=== PATIENT | female | born 1950 | race Caucasian/White ===

== ENCOUNTER 2017-08-19 15:22 | Inpatient (IN) | payer MEDICARE, BC ==
[~2017-08-19] VITALS: Ht 162.6 cm; Wt 76.7 kg
--- NOTE | 2017-08-19 15:00 | NUR ---
Admitted a 66 year old female patient from [facility] with admitting diagnosis of Right CVA. patient is awake, on a gurney, accompanied by 2 EMT staff with vital signs of BP: 114/70, HR: 80, RR: 20, O2 sat of 98 % on room air and temp: 97.7 F taken orally. patient was oriented to place and how to use call light. bed alarm on for safety due to report from Sharif SANTOS at [facility] that patient had history of falls. Med recon done. Will continue to closely monitor. the patient. called Dr. Genao and notified that patient is being admitted and Dr. Gilda Shepard.
[2017-08-19] MEDS ORDERED: LEVE1000 PO (15:45)
[2017-08-19] MEDS ORDERED: FLUT1DIS28 IH (15:57)
[2017-08-19] MEDS ORDERED: ASPI-605 PO (15:57)
[2017-08-19] MEDS ORDERED: FURO-151 PO (15:57)
[2017-08-19] MEDS ORDERED: CARV6.252 PO (15:57)
[2017-08-19] MEDS ORDERED: ATOR20TA PO (15:57)
[2017-08-19] MEDS ORDERED: ALLO100T56 PO (15:57)
[2017-08-19] MEDS ORDERED: ACET-2154 PO (15:57)
[2017-08-19] MEDS ORDERED: FOLI1TAB16 PO (15:57)
[2017-08-19] MEDS ORDERED: CHOL10002 PO (15:57)
[2017-08-19] MEDS ORDERED: LANS30CA56 PO (15:57)
[2017-08-19] MEDS ORDERED: ONDA4TAB8 PO (16:05)
[2017-08-19] MEDS ORDERED: SPIR25TA PO (16:05)
[2017-08-19] MEDS ORDERED: VALP250S17 PO (16:05)
[2017-08-19] MEDS ORDERED: TAMS-3 PO (16:05)
[2017-08-19] MEDS ORDERED: LISI-603 PO (16:05)
[2017-08-19] MEDS ORDERED: TIOT18CA3 IH (16:05)
[2017-08-19] MEDS ORDERED: THIA100T13 PO (16:05)
[2017-08-19 16:10] VITALS: BP 114/70
--- NOTE | 2017-08-19 18:15 | NUR ---
Patient asleep, lying on bed on a side lying position with head of bed above 45 degree angle. Aroused easily. All needs were attended and anticipated. kept patient clean dry and comfortable. call light placed within reach. reoriented to time and place. Will continue to closely monitor. Bed alarm on for safety.
--- NOTE | 2017-08-19 18:56 | NUR ---
patient remained asleep on her side with no SOB, distress or discomforts. Bed alarm on for safety. Easily aroused. Call light placed within reach. Will endorse to incoming shift
[2017-08-19] MEDS ORDERED: CARVEDILOL 6.25 MG TABLET PO SCH (19:00)
[2017-08-19 19:30] VITALS: BP 132/75
--- NOTE | 2017-08-19 19:30 | NUR ---
Received patient from day shift nurse. Shift report at bedside. Patient stable at start of shift, sleeping comfortably in bed with no signs of pain, sob, or acute distress. family at bedside at start of shift. 1:1 sitter at bedside. pertinent assessment completed. vital signs stable at start of shift. bed in low position x2 side rails up. bed alarm on and checked at start of shift. call light placed within reach of pt. will continue to monitor pt through shift.
[2017-08-19] MEDS: LEVETIRACETAM 500 MG TABLET PO SCH (20:26)
[2017-08-19] MEDS: ATORVASTATIN 20 MG TABLET PO SCH (20:26)
[2017-08-19] MEDS: ALLOPURINOL 100 MG TABLET PO SCH (20:26)
[2017-08-19] MEDS: CARVEDILOL 12.5 MG TABLET PO SCH (20:33)
[2017-08-19] MEDS: VALPROIC ACID 250 MG/5 ML LIQUID UDC PO SCH (20:33)
[2017-08-19] MEDS: LISINOPRIL 20 MG TABLET PO SCH (20:33)
--- NOTE | 2017-08-19 20:33 | NUR ---
1900 meds given late due to late admission and med reconciliation. patient stable will continue to monitor pt through shift.
--- NOTE | 2017-08-20 05:57 | NUR ---
patient slept intermittently through shift. stable with no signs of pain, sob, or acute distress. vital signs stable through out the night. all needs attended to. 1:1 sitter at bedside. assisted pt to bathroom during the shift. safety measures implemented. all meds administered as ordered per md. bed in low position x2 side rails up. bed alarm placed on through shift. call light within reach of pt. will endorse to day shift nurse.
[2017-08-20 07:48] LABS: BASOPHILS % (AUTO) 0.8 % (0.0-2.0); EOSINOPHILS # (AUTO) 0.3 K/uL (0.0-0.7); EOSINOPHILS % (AUTO) 7.2 % (0.0-7.0); HEMATOCRIT 34.6 % (31.2-41.9); HEMOGLOBIN 11.5 g/dL (10.9-14.3); LYMPHOCYTES # (AUTO) 1.4 K/uL (20.0-40.0); LYMPHOCYTES % (AUTO) 28.4 % (20.5-51.5); MEAN CORPUSCULAR HEMOGLOBIN 28.5 uug (24.7-32.8); MEAN CORPUSCULAR HGB CONC 33 g/dL (32.3-35.6); MEAN CORPUSCULAR VOLUME 85.9 fL (75.5-95.3); MONOCYTES # (AUTO) 0.5 K/uL (2.0-10.0); MONOCYTES % (AUTO) 10.7 % (0.0-11.0); NEUTROPHILS # (AUTO) 2.6 K/uL (1.8-8.9); NEUTROPHILS % (AUTO) 52.9 % (38.5-71.5); PLATELET COUNT (AUTO) 162 K/uL (179-408); RED BLOOD CELL COUNT(AUTO) 4.03 MIL/uL (3.63-4.92); WHITE BLOOD COUNT (AUTO) 4.8 K/uL (3.8-11.8)
[2017-08-20 07:59] LABS: POTASSIUM 3.5 mmol/L (3.5-5.1)
[2017-08-20] MEDS ORDERED: ONDANSETRON ODT 4 MG TAB.RAPDIS SL PRN (08:15)
[2017-08-20] MEDS ORDERED: FUROSEMIDE 40 MG TABLET PO PRN (08:15)
[2017-08-20] MEDS ORDERED: MISCELLANEOUS MED XX PRN (08:15)
[2017-08-20] MEDS ORDERED: ACETAMINOPHEN 325 MG TABLET PO PRN (08:15)
[2017-08-20] MEDS: THIAMINE HCL 100 MG TABLET PO SCH (08:49)
[2017-08-20] MEDS: CHOLECALCIFEROL 1,000 UNIT TABLET PO SCH (08:49)
[2017-08-20] MEDS: CARVEDILOL 12.5 MG TABLET PO SCH ×2 (08:49→18:43)
[2017-08-20] MEDS: FOLIC ACID 1 MG TABLET PO SCH (08:49)
[2017-08-20] MEDS: TAMSULOSIN HCL 0.4 MG CAP.SR.24H PO SCH (08:50)
[2017-08-20] MEDS: LEVETIRACETAM 500 MG TABLET PO SCH ×2 (08:51→20:08)
[2017-08-20] MEDS: LISINOPRIL 20 MG TABLET PO SCH ×2 (08:52→18:43)
[2017-08-20] MEDS: VALPROIC ACID 250 MG/5 ML LIQUID UDC PO SCH ×2 (08:52→18:44)
[2017-08-20] MEDS: ASPIRIN EC 81 MG TABLET.DR PO SCH (08:53)
[2017-08-20] MEDS ORDERED: Medication Not On Formulary EA (Lansoprazole 30 MG) PO SCH (09:00)
[2017-08-20] MEDS ORDERED: FLUTICASONE/SALMETEROL 250/50 INHALER IH SCH (09:00)
[2017-08-20] MEDS: SPIRONOLACTONE 25 MG TABLET PO SCH (09:00)
[2017-08-20] MEDS ORDERED: IPRATROPIUM BROMIDE 0.5 MG/2.5 ML NEBU NEB PRN (09:30)
[2017-08-20] MEDS ORDERED: MELATONIN 3 MG TABLET PO PRN (13:15)
[2017-08-20 19:30] VITALS: BP 117/63
[2017-08-20] MEDS: ATORVASTATIN 20 MG TABLET PO SCH (20:08)
[2017-08-20] MEDS: ALLOPURINOL 100 MG TABLET PO SCH (20:08)
--- NOTE | 2017-08-20 20:29 | NUR ---
RECEIVED PATIENT FROM DAY SHIFT NURSE. SHIFT REPORT AT BEDSIDE. PATIENT STABLE, LYING IN BED COMFORTABLY WITH NO SIGNS OF PAIN, SOB, OR ACUTE DISTRESS. PERTINENT ASSESSMENT COMPLETED. ON 2L O2 VIA NC. HOB ELEVATED. BED IN LOW POSITION X2 SIDE RAILS UP. ENCOURAGED PATIENT TO USE CALL LIGHT WHEN NEEDING ASSISTANCE. CALL LIGHT PLACED WITHIN REACH OF PATIENT. WILL CONTINUE TO MONITOR PATIENT THROUGH SHIFT. Addendum: 08/20/17 at 2031 by Remi Bright RN DOCUMENTED FOR THE WRONG PATIENT. PATIENT IS NOT ON O2 2L VIA NC. PATIENT HAS A 1:1 SITTER AT BEDSIDE. BED ALARM ON FOR SAFETY. WILL CONTINUE TO MONITOR PATIENT.
--- NOTE | 2017-08-21 05:36 | NUR ---
PATIENT STABLE THROUGH THE SHIFT. NO SIGNS OF PAIN, SOB, OR ACUTE DISTRESS. PT SLEPT INTERMITTENTLY. ALL MEDS ADMINISTERED ORDERED PER MD. ALL NEEDS ATTENDED TO. SAFETY MEASURES IMPLEMENTED. CALL LIGHT WITHIN REACH OF PT. 1:1 SITTER AT BEDSIDE. BED IN LOW POSITION X2 SIDE RAILS UP WITH BED ALARM ON. NO CHANGES IN CONDITION. WILL ENDORSE TO DAY SHIFT NURSE.
[2017-08-21] MEDS: PANTOPRAZOLE SODIUM 40 MG TABLET.DR PO SCH (06:04)
[2017-08-21] MEDS: CARVEDILOL 12.5 MG TABLET PO SCH ×2 (08:00→17:17)
[2017-08-21] MEDS: SPIRONOLACTONE 25 MG TABLET PO SCH ×2 (09:04→17:00)
[2017-08-21] MEDS: THIAMINE HCL 100 MG TABLET PO SCH (09:04)
[2017-08-21] MEDS: TAMSULOSIN HCL 0.4 MG CAP.SR.24H PO SCH (09:04)
[2017-08-21] MEDS: ASPIRIN EC 81 MG TABLET.DR PO SCH (09:04)
[2017-08-21] MEDS: LISINOPRIL 20 MG TABLET PO SCH ×2 (09:04→17:00)
[2017-08-21] MEDS: LEVETIRACETAM 500 MG TABLET PO SCH ×2 (09:04→21:29)
[2017-08-21] MEDS: FOLIC ACID 1 MG TABLET PO SCH (09:04)
[2017-08-21] MEDS: CHOLECALCIFEROL 1,000 UNIT TABLET PO SCH (09:04)
[2017-08-21] MEDS: VALPROIC ACID 250 MG/5 ML LIQUID UDC PO SCH ×2 (09:04→17:07)
[2017-08-21] MEDS: FLUTICASONE/VILANTEROL 1 EACH BLST.W.DEV INH SCH (09:06)
[2017-08-21] MEDS: ATORVASTATIN 20 MG TABLET PO SCH (21:29)
[2017-08-21] MEDS: ALLOPURINOL 100 MG TABLET PO SCH (21:29)
--- NOTE | 2017-08-21 22:38 | NUR ---
Pt in bed and resting comfortably. AAO x4. On isolation for MRSA nares. Patient to be transferred from 109 to 101A because pt is sharing bathroom with 108. No acute distress noted. No c/o pain or discomfort. Vital signs stable. Safety measures maintained. Call light and personal belongings within reach. Will continue to monitor.
--- NOTE | 2017-08-22 05:44 | NUR ---
Pt slept comfortably t/o the night. Assisted to the bathroom as needed. Able to make needs known. All needs attended to promptly. Will endorse to day shift RN. Continue to monitor.
[2017-08-22] MEDS: PANTOPRAZOLE SODIUM 40 MG TABLET.DR PO SCH (06:21)
--- NOTE | 2017-08-22 07:30 | NUR ---
Received patient awake, alert, verbally responsive, up on bed, not in any form of acute distress. She denies any pain or discomfort at this time. Call light placed within reach. Reminded to use call light for assistance with verbalized understanding. Attended to her needs.
[2017-08-22 07:35] VITALS: BP 131/61
[2017-08-22] MEDS: LEVETIRACETAM 500 MG TABLET PO SCH ×2 (08:36→20:01)
[2017-08-22] MEDS: FOLIC ACID 1 MG TABLET PO SCH (08:37)
[2017-08-22] MEDS: ASPIRIN EC 81 MG TABLET.DR PO SCH (08:37)
[2017-08-22] MEDS: CHOLECALCIFEROL 1,000 UNIT TABLET PO SCH (08:37)
[2017-08-22] MEDS: TAMSULOSIN HCL 0.4 MG CAP.SR.24H PO SCH (08:37)
[2017-08-22] MEDS: THIAMINE HCL 100 MG TABLET PO SCH (08:37)
[2017-08-22] MEDS: SPIRONOLACTONE 25 MG TABLET PO SCH ×2 (08:37→16:30)
[2017-08-22] MEDS: FLUTICASONE/VILANTEROL 1 EACH BLST.W.DEV INH SCH (08:38)
[2017-08-22] MEDS: VALPROIC ACID 250 MG/5 ML LIQUID UDC PO SCH ×2 (08:38→16:30)
[2017-08-22] MEDS: LISINOPRIL 20 MG TABLET PO SCH ×2 (08:40→17:17)
[2017-08-22] MEDS: CARVEDILOL 12.5 MG TABLET PO SCH ×2 (08:40→17:17)
--- NOTE | 2017-08-22 14:00 | NUR ---
Patient up on the wheelchair going to the gym with occupational therapist.
--- NOTE | 2017-08-22 14:03 | NUR ---
Notified Dr. Garcia regarding positive MRSA of nares and MD put an order for mupirocin ointment.
--- NOTE | 2017-08-22 17:08 | NUR ---
Patient sitting up on the side of the bed having dinner. She denies any pain or discomfort at this time.
--- NOTE | 2017-08-22 19:10 | NUR ---
Pt resting comfortably in bed. AAO x4. No acute distress noted. No c/o pain or discomfort. Contact isolation protocol implemented. Safety measures maintained. Call light and personal belongings within reach. Will continue to monitor.
[2017-08-22] MEDS: ATORVASTATIN 20 MG TABLET PO SCH (20:01)
[2017-08-22] MEDS: MUPIROCIN 2% OINT 22 GM TUBE NS SCH (20:01)
[2017-08-22] MEDS: ALLOPURINOL 100 MG TABLET PO SCH (20:01)
[2017-08-22 21:50] VITALS: BP 98/64
--- NOTE | 2017-08-23 05:40 | NUR ---
Pt slept comfortably t/o the night. Meds given per MD's order. Pt stable. Still on contact isolation. All needs attended to promptly and assisted to the bathroom as needed. Will endorse to day shift RN. Continue to monitor.
[2017-08-23] MEDS: PANTOPRAZOLE SODIUM 40 MG TABLET.DR PO SCH (06:13)
[2017-08-23 07:00] VITALS: BP 123/74
[2017-08-23] MEDS: MUPIROCIN 2% OINT 22 GM TUBE NS SCH ×2 (08:31→20:52)
[2017-08-23] MEDS: CARVEDILOL 12.5 MG TABLET PO SCH ×2 (08:32→18:00)
[2017-08-23] MEDS: FOLIC ACID 1 MG TABLET PO SCH (08:32)
[2017-08-23] MEDS: THIAMINE HCL 100 MG TABLET PO SCH (08:32)
[2017-08-23] MEDS: CHOLECALCIFEROL 1,000 UNIT TABLET PO SCH (08:33)
[2017-08-23] MEDS: ASPIRIN EC 81 MG TABLET.DR PO SCH (08:33)
[2017-08-23] MEDS: SPIRONOLACTONE 25 MG TABLET PO SCH ×2 (08:33→17:25)
[2017-08-23] MEDS: LISINOPRIL 20 MG TABLET PO SCH ×2 (08:33→17:00)
[2017-08-23] MEDS: LEVETIRACETAM 500 MG TABLET PO SCH ×2 (08:33→20:50)
[2017-08-23] MEDS: TAMSULOSIN HCL 0.4 MG CAP.SR.24H PO SCH (08:34)
[2017-08-23] MEDS: FLUTICASONE/VILANTEROL 1 EACH BLST.W.DEV INH SCH (08:35)
[2017-08-23] MEDS: VALPROIC ACID 250 MG/5 ML LIQUID UDC PO SCH ×2 (08:40→17:26)
--- NOTE | 2017-08-23 12:49 | NUR ---
SBAR report received near bedside, board updated. Pt awake, alert, and oriented. Pt assessed, no c/o pain, acute distress or SOB. Pt compliant with routine morning medication and plan of care discussed with Pt. Stroke assessment and Pt education provided, with no changes to scale score. Call light and personal items within reach. Bed alarm on and Pt reminded to call for any assistance. All safety and comfort measures met at this time. Will continue to monitor.
--- NOTE | 2017-08-23 14:41 | NUR ---
INTERDISCIPLINARY TEAM CONFERENCE
--- NOTE | 2017-08-23 19:04 | NUR ---
Pt seen by MD, code status discussed, and full code status order placed. Pt's son visited for afternoon meeting. BP medications held due to decreased readings 106/48, 63, then 110/43, 62. Pt denies dizziness at this time. Call light within reach and Pt reminded to utilize for all toileting needs. Bed alarm on. Will endorse to oncoming shift production supervisor.
--- NOTE | 2017-08-23 19:30 | NUR ---
Received pt in bed, appearing to be asleep but easily arousable to verbal stimuli. No acute distress noted. Denies any pain or discomfort at this time. Verbally responsive and able to make needs known. Call light and all personal belongings within reach. Will continue to monitor.
[2017-08-23 20:15] VITALS: BP 97/61
[2017-08-23] MEDS: ATORVASTATIN 20 MG TABLET PO SCH (20:50)
[2017-08-23] MEDS: ALLOPURINOL 100 MG TABLET PO SCH (20:51)
[2017-08-24] MEDS: PANTOPRAZOLE SODIUM 40 MG TABLET.DR PO SCH (06:25)
--- NOTE | 2017-08-24 06:47 | NUR ---
Pt slept comfortably throughout the shift. No complaints of pain or discomfort throughout shift. No acute distress noted. Kept clean and dry. All needs anticipated and met accordingly. All safety measures and fall precautions maintained. Call light within reach. Will endorse to AM shift.
[2017-08-24 08:00] VITALS: BP 121/67
[2017-08-24] MEDS: CARVEDILOL 12.5 MG TABLET PO SCH ×2 (08:00→17:42)
[2017-08-24] MEDS: CHOLECALCIFEROL 1,000 UNIT TABLET PO SCH (08:19)
[2017-08-24] MEDS: TAMSULOSIN HCL 0.4 MG CAP.SR.24H PO SCH (08:19)
[2017-08-24] MEDS: FOLIC ACID 1 MG TABLET PO SCH (08:20)
[2017-08-24] MEDS: ASPIRIN EC 81 MG TABLET.DR PO SCH (08:20)
[2017-08-24] MEDS: THIAMINE HCL 100 MG TABLET PO SCH (08:20)
[2017-08-24] MEDS: LEVETIRACETAM 500 MG TABLET PO SCH ×2 (08:21→20:20)
[2017-08-24] MEDS: VALPROIC ACID 250 MG/5 ML LIQUID UDC PO SCH ×2 (08:22→17:39)
[2017-08-24] MEDS: FLUTICASONE/VILANTEROL 1 EACH BLST.W.DEV INH SCH (08:24)
[2017-08-24] MEDS: MUPIROCIN 2% OINT 22 GM TUBE NS SCH ×2 (08:25→20:21)
[2017-08-24] MEDS: SPIRONOLACTONE 25 MG TABLET PO SCH ×2 (08:34→17:42)
[2017-08-24] MEDS: LISINOPRIL 20 MG TABLET PO SCH ×2 (09:00→17:42)
--- NOTE | 2017-08-24 12:22 | NUR ---
SBAR report received near bedside, board updated. Pt awake, alert, and oriented x4. Pt assessed no acute distress, no SOB, and no pain. Pt compliant with all routine morning medications, except Coreg and Lisinipril stating "taking too many BP medications". Pt repositioned for safety and comfort, sitting up for lunch. Call light and personal items all placed within reach. Will continue to monitor.
--- NOTE | 2017-08-24 19:01 | NUR ---
Pt became upset for talking to son on the phone regarding laundry. Pt escorted around the unit in wheelchair to calm down. BP 150/83, 86 pulse, BP medications administered per orders. All safety and comfort measures met. Call light within reach. Will continue to monitor and endorse to assistant shift supervisor.
--- NOTE | 2017-08-24 19:22 | NUR ---
Received report from day shift RN. Received pt in bed, sitting up and watching television. AAO x 4. Verbally responsive and able to make needs known. Denies pain or discomfort at this time. No acute distress noted. Call light and all personal belongings within reach. Will continue to monitor.
[2017-08-24 20:02] VITALS: BP 91/62
[2017-08-24] MEDS: ATORVASTATIN 20 MG TABLET PO SCH (20:20)
[2017-08-24] MEDS: ALLOPURINOL 100 MG TABLET PO SCH (20:20)
--- NOTE | 2017-08-25 05:54 | NUR ---
Pt slept comfortably throughout the shift. No complaints of pain or discomfort. No acute distress. All medications given as ordered and well tolerated. Kept clean, dry and comfortable. All needs anticipated and met accordingly. Call light and all personal belongings within reach. All safety measures and fall precautions maintained. Will continue to monitor. Will endorse to AM shift.
[2017-08-25] MEDS: PANTOPRAZOLE SODIUM 40 MG TABLET.DR PO SCH (06:30)
[2017-08-25 08:28] VITALS: BP 136/57
[2017-08-25] MEDS: MUPIROCIN 2% OINT 22 GM TUBE NS SCH ×2 (08:47→20:26)
[2017-08-25] MEDS: FOLIC ACID 1 MG TABLET PO SCH (08:48)
[2017-08-25] MEDS: CHOLECALCIFEROL 1,000 UNIT TABLET PO SCH (08:48)
[2017-08-25] MEDS: TAMSULOSIN HCL 0.4 MG CAP.SR.24H PO SCH (08:48)
[2017-08-25] MEDS: ASPIRIN EC 81 MG TABLET.DR PO SCH (08:48)
[2017-08-25] MEDS: FLUTICASONE/VILANTEROL 1 EACH BLST.W.DEV INH SCH (08:48)
[2017-08-25] MEDS: THIAMINE HCL 100 MG TABLET PO SCH (08:48)
[2017-08-25] MEDS: SPIRONOLACTONE 25 MG TABLET PO SCH ×2 (08:49→17:23)
[2017-08-25] MEDS: LISINOPRIL 20 MG TABLET PO SCH ×2 (08:49→17:00)
[2017-08-25] MEDS: LEVETIRACETAM 500 MG TABLET PO SCH ×2 (08:49→20:27)
[2017-08-25] MEDS: VALPROIC ACID 250 MG/5 ML LIQUID UDC PO SCH ×2 (08:50→17:23)
[2017-08-25] MEDS: CARVEDILOL 12.5 MG TABLET PO SCH ×2 (08:53→18:00)
--- NOTE | 2017-08-25 19:30 | NUR ---
RECEIVED PATIENT FROM DAY SHIFT NURSE. SHIFT REPORT AT BEDSIDE. PATIENT A/OX4 WITH NO SIGNS OF PAIN, SOB, OR ACUTE DISTRESS. PT SITTING UPRIGHT IN BED AT START OF SHIFT ON THE PHONE. BED IN LOW POSITION X2 SIDE RAILS UP. PERTINENT ASSESSMENT DONE. ON ISOLATION FOR MRSA NARES. CALL LIGHT WITHIN REACH OF PT. WILL CONTINUE TO MONITOR PT THROUGH SHIFT.
[2017-08-25] MEDS: ALLOPURINOL 100 MG TABLET PO SCH (20:27)
[2017-08-25] MEDS: ATORVASTATIN 20 MG TABLET PO SCH (20:27)
[2017-08-25 21:25] LABS: *BILIRUBIN,URIN NEGATIVE (NEGATIVE); *BLOOD, URINE NEGATIVE (NEGATIVE); *CLARITY,URINE CLEAR (CLEAR); *COLOR,URINE YELLOW (YELLOW); *KETONES,URINE NEGATIVE (NEGATIVE); *PROTEIN,URINE NEGATIVE (NEGATIVE); *UROBILINOGEN,URINE 0.2 E.U./dl (NORMAL); LEUKOCYTE ESTERASE ,URINE NEGATIVE (NEGATIVE); NITRITE, URINE NEGATIVE (NEGATIVE); UGLUCOSE NEGATIVE (NEGATIVE)
[2017-08-25 21:30] LABS: BACTERIA,URINE FEW /HPF (NONE SEEN); CALCIUM OXALATE CRYSTALS,UR PRESENT /HPF (NONE SEEN); RBC,URINE 0-3 /HPF (0-3); SQUAMOUS EPITHELIAL CELL,UR FEW /HPF (NONE SEEN); WBC,URINE 0-3 /HPF (0-3)
--- NOTE | 2017-08-26 05:38 | NUR ---
PATIENT SLEPT INTERMITTENTLY THROUGH THE SHIFT. NO SIGNS OR COMPLAINTS OF PAIN, SOB, OR ACUTE DISTRESS. ALL NEEDS ATTENDED TO. ALL MEDS ADMINISTERED ORDERED PER MD. ENCOURAGED PT TO USE CALL LIGHT WHEN NEEDING ASSISTANCE. PT COMPLAINT AND USED CALL LIGHT WHEN NEEDING TO GET UP AND USE RESTROOM. SAFETY MEASURES IMPLEMENTED. CALL LIGHT WITHIN REACH OF PT. WILL ENDORSE TO DAY SHIFT NURSE.
[2017-08-26] MEDS: PANTOPRAZOLE SODIUM 40 MG TABLET.DR PO SCH (06:26)
--- NOTE | 2017-08-26 07:44 | NUR ---
RECEIVED PATIENT, ASLEEP. NON-LABORED BREATHING. CALL LIGHT WITHIN REACH. WILL CONTINUE TO MONITOR.
[2017-08-26] MEDS: CARVEDILOL 12.5 MG TABLET PO SCH ×2 (08:28→17:57)
[2017-08-26] MEDS: TAMSULOSIN HCL 0.4 MG CAP.SR.24H PO SCH (08:28)
[2017-08-26] MEDS: CHOLECALCIFEROL 1,000 UNIT TABLET PO SCH (08:30)
[2017-08-26] MEDS: SPIRONOLACTONE 25 MG TABLET PO SCH ×2 (08:30→17:57)
[2017-08-26] MEDS: THIAMINE HCL 100 MG TABLET PO SCH (08:30)
[2017-08-26] MEDS: LISINOPRIL 20 MG TABLET PO SCH ×2 (08:30→17:57)
[2017-08-26] MEDS: FOLIC ACID 1 MG TABLET PO SCH (08:30)
[2017-08-26] MEDS: ASPIRIN EC 81 MG TABLET.DR PO SCH (08:30)
[2017-08-26] MEDS: LEVETIRACETAM 500 MG TABLET PO SCH ×2 (08:30→21:26)
[2017-08-26] MEDS: MUPIROCIN 2% OINT 22 GM TUBE NS SCH ×2 (08:30→21:26)
[2017-08-26] MEDS: FLUTICASONE/VILANTEROL 1 EACH BLST.W.DEV INH SCH (08:31)
[2017-08-26] MEDS: VALPROIC ACID 250 MG/5 ML LIQUID UDC PO SCH ×2 (08:31→17:58)
[2017-08-26 08:34] VITALS: BP 142/59
--- NOTE | 2017-08-26 10:56 | NUR ---
PATIENT IN BED AND REFUSES TO WORK WITH PHYSICAL THERAPY, A BIT WITHDRAWN TODAY. HOWEVER PATIENT SAID SHE IS OK TO WORK WITH OCCUPATIONAL THERAPY.
--- NOTE | 2017-08-26 18:00 | NUR ---
Patient agitated and claims she is upset with the food and refuses dinner served,
--- NOTE | 2017-08-26 20:17 | NUR ---
Patient resting in bed. Denies any pain. Not in any form of distress. Call light within reach.
[2017-08-26] MEDS: ALLOPURINOL 100 MG TABLET PO SCH (21:26)
[2017-08-26] MEDS: ATORVASTATIN 20 MG TABLET PO SCH (21:27)
[2017-08-26 21:43] VITALS: BP 123/60
--- NOTE | 2017-08-26 22:30 | NUR ---
Change of assignment. Received pt sleeping comfortably in bed. Easily arousable when called by name. Vital signs stable. No acute distress noted. No c/o pain or discomfort. Safety measures maintained. Call light and personal belongings within reach. Will continue to monitor.
--- NOTE | 2017-08-27 05:18 | NUR ---
Patient slept comfortably t/o the night. Meds given as prescribed. Assisted to the bathroom as needed. All needs attended to promptly. Contact isolation observed. Will endorse to day shift RN. Continue to monitor.
[2017-08-27] MEDS: PANTOPRAZOLE SODIUM 40 MG TABLET.DR PO SCH (06:14)
[2017-08-27 07:30] VITALS: BP 114/54
--- NOTE | 2017-08-27 09:30 | NUR ---
Morning care done. Assisted patient to bathroom. Patient upset and withdrawn.
[2017-08-27] MEDS: FLUTICASONE/VILANTEROL 1 EACH BLST.W.DEV INH SCH (09:34)
[2017-08-27] MEDS: LISINOPRIL 20 MG TABLET PO SCH ×2 (09:37→17:00)
[2017-08-27] MEDS: LEVETIRACETAM 500 MG TABLET PO SCH ×2 (09:37→20:14)
[2017-08-27] MEDS: FOLIC ACID 1 MG TABLET PO SCH (09:37)
[2017-08-27] MEDS: TAMSULOSIN HCL 0.4 MG CAP.SR.24H PO SCH (09:37)
[2017-08-27] MEDS: CHOLECALCIFEROL 1,000 UNIT TABLET PO SCH (09:37)
[2017-08-27] MEDS: THIAMINE HCL 100 MG TABLET PO SCH (09:37)
[2017-08-27] MEDS: CARVEDILOL 12.5 MG TABLET PO SCH ×2 (09:37→17:41)
[2017-08-27] MEDS: SPIRONOLACTONE 25 MG TABLET PO SCH ×2 (09:37→17:10)
[2017-08-27] MEDS: ASPIRIN EC 81 MG TABLET.DR PO SCH (09:37)
[2017-08-27] MEDS: VALPROIC ACID 250 MG/5 ML LIQUID UDC PO SCH ×2 (09:38→17:11)
[2017-08-27] MEDS: MUPIROCIN 2% OINT 22 GM TUBE NS SCH ×2 (09:38→20:14)
--- NOTE | 2017-08-27 18:00 | NUR ---
Attended to needs, assisted patient outside for air. Patient complained of tolerable pain over sinus, offered pain medications but refused
--- NOTE | 2017-08-27 19:30 | NUR ---
PT ALERT AND ORIENTED IN BED. NO DISTRESS NOTED. PT CLEAN AND DRY. REFUSING BED ALARM BEING PLACED. EXPLAINED THE IMPORTANCE OF THE BED ALARM AND PT INSISTED IT NOT BE PLACED. ALL NEEDS MET, WILL CONTINUE TO MONITOR.
[2017-08-27] MEDS: ATORVASTATIN 20 MG TABLET PO SCH (20:14)
[2017-08-27] MEDS: ALLOPURINOL 100 MG TABLET PO SCH (20:14)
[2017-08-27 21:09] VITALS: BP 95/40
--- NOTE | 2017-08-27 21:50 | NUR ---
PT COMPLAINING OF BURNING IN NOSTRILS AFTER BACTROBAN APPLIED. REQUESTING TYLENOL, WHEN TYLENOL WAS BROUGHT TO PT, PT REFUSING ONLY ONE TABLET REQUESTING TWO TABLETS. SPOKE WITH DR ABRAMS AND GAVE ORDERED. WILL CONTINUE TO MONITOR.
[2017-08-27] MEDS: ACETAMINOPHEN 325 MG TABLET PO PRN (21:56)
[2017-08-27] MEDS ORDERED: ACETAMINOPHEN 325 MG TABLET ONE (22:10)
[2017-08-28] MEDS: PANTOPRAZOLE SODIUM 40 MG TABLET.DR PO SCH (06:34)
--- NOTE | 2017-08-28 07:43 | NUR ---
PT ALERT AND ORIENTED IN BED. NO DISTRESS NOTED. SLEPT WELL THROUGHOUT THE NIGHT. ALL NEEDS MET. SAFETY MAINTAINED. CALL LIGHT WITHIN REACH.
[2017-08-28] MEDS: CARVEDILOL 12.5 MG TABLET PO SCH ×2 (08:11→18:00)
[2017-08-28] MEDS: FLUTICASONE/VILANTEROL 1 EACH BLST.W.DEV INH SCH (08:12)
[2017-08-28] MEDS: MUPIROCIN 2% OINT 22 GM TUBE NS SCH ×2 (08:13→21:00)
[2017-08-28] MEDS: SPIRONOLACTONE 25 MG TABLET PO SCH ×2 (08:13→18:32)
[2017-08-28] MEDS: VALPROIC ACID 250 MG/5 ML LIQUID UDC PO SCH ×2 (08:14→18:32)
[2017-08-28] MEDS: FOLIC ACID 1 MG TABLET PO SCH (08:16)
[2017-08-28] MEDS: THIAMINE HCL 100 MG TABLET PO SCH (08:16)
[2017-08-28] MEDS: LISINOPRIL 20 MG TABLET PO SCH ×3 (08:17→18:30)
[2017-08-28] MEDS: CHOLECALCIFEROL 1,000 UNIT TABLET PO SCH (08:17)
[2017-08-28] MEDS: LEVETIRACETAM 500 MG TABLET PO SCH ×2 (08:19→21:17)
[2017-08-28] MEDS: TAMSULOSIN HCL 0.4 MG CAP.SR.24H PO SCH (08:19)
[2017-08-28] MEDS: ASPIRIN EC 81 MG TABLET.DR PO SCH (08:19)
--- NOTE | 2017-08-28 08:31 | NUR ---
PATIENT EXPRESSED SHE IS "IN A SET MOOD, UPSET" SHE STATED THE PRODUCTION PACKAGER MADE HER UPSET "I HAD A TERRIBLE NIGHT, I DID NOT WANT THE CREAM IN MY NOSE AND I GOT IT ANYWAY IT HURTS AND STINGS" PATIENT STATED "I WILL NOT TAKE THAT CREAM AGAIN , I JNOW WHAT IT IS FOR AND I STILL DO NOT WANT IT"
[2017-08-28] MEDS: ACETAMINOPHEN 325 MG TABLET PO PRN ×2 (08:43→18:51)
--- NOTE | 2017-08-28 10:47 | NUR ---
PATIENT REPORTS FEELING COMFORTABLE NOW. NO ACUTE DISTRESS NOTED REPORTS HER PAIN MEDICATION ADMINS THIS MORNING WAS EFFECTIVE. NASAL/SINUS PAIN RESOLVED AT THE TIME. PATIENT IN BED SAFETY PRECAUTIONS IN PLACE. PATIENT SLEEPING EASILY AROUSED.
[2017-08-28 18:22] VITALS: BP 108/38
--- NOTE | 2017-08-28 19:28 | NUR ---
PATIENT IN BED SLEEPING WAKES TO NAME CALLED. PATIENT REPORTS SHE IS ANGRY BECAUSE SHE WAS NOT ABLE TO GO HAVE NEW YEARS DINNER WITH HER FAMILY. PATIENT STATES I AM UPSET AND "I WILL NOT BE EATING DINNER TONIGHT. THEY SERVE GARBAGE HERE, ALWAYS GARBAGE" DISCUSSED OBTAINING HER VS IN ORDER TO ADMINS PM MEDS. THE PATIENT STATED "I DON'T CARE" PT VS OBTAINED BP NOTED TO BE LOW. BP MEDS HELD. PATIENT REPORTED PAIN OF 5/10 TO HER NOSTRILS AND SINUS REQUESTED TYLENOL. MEDICATIONS PREPARED FOR PATIENT AND REVIEWED MEDS WITH HER. THE PATIENT THEN REFUSED THE MEDICATIONS. ALL PM MEDS REFUSED. STATING " I DON'T WANT ANY MEDICATIONS NOW I DON'T HAVE TO TAKE THE MEDICATIONS IF I DON'T WANT TO" PATIENTS RESTATED SHE WAS VERY UPSET. PATIENT REMAINED IN BED EYES CLOSED AND STATED "LET ME SLEEP" INFORMATION RELAYED TO CAMELIA SANTOS AND PM ASSIGNED NURSE.
--- NOTE | 2017-08-28 19:45 | NUR ---
Received patient from AM shift nurse. Shift report done at bedside. Pt. in bed, asleep,vital signs taken, no sob, or acute distress. Safety measures provided. bed in low position x2 side rails up. bed alarm on and checked at start of shift. call light placed within reach of pt. will continue to monitor pt through shift.
[2017-08-28 21:07] VITALS: BP 118/54
[2017-08-28] MEDS: ALLOPURINOL 100 MG TABLET PO SCH (21:15)
[2017-08-28] MEDS: ATORVASTATIN 20 MG TABLET PO SCH (21:15)
--- NOTE | 2017-08-28 21:25 | NUR ---
pt. refused the Mupirocin ointment, explained to the patient the benefits of this medications and the risks of not taking it. Offered 3x but still patient refused.
[2017-08-29] MEDS: ACETAMINOPHEN 325 MG TABLET PO PRN ×3 (02:54→21:36)
[2017-08-29] MEDS: PANTOPRAZOLE SODIUM 40 MG TABLET.DR PO SCH (06:48)
--- NOTE | 2017-08-29 07:30 | NUR ---
Pt able to sleep comfortably throughout the shift. No complaints of pain or discomfort throughout shift. Breathing even and nonlabored, no distress noted. Kept clean and dry. All needs attended to. All safety measures and fall precautions maintained. Call light within reach. Will endorse to AM shift
[2017-08-29 08:45] VITALS: BP 146/82
[2017-08-29] MEDS: LEVETIRACETAM 500 MG TABLET PO SCH ×2 (08:45→21:36)
[2017-08-29] MEDS: FOLIC ACID 1 MG TABLET PO SCH (08:45)
[2017-08-29] MEDS: ASPIRIN EC 81 MG TABLET.DR PO SCH (08:45)
[2017-08-29] MEDS: SPIRONOLACTONE 25 MG TABLET PO SCH ×2 (08:45→17:07)
[2017-08-29] MEDS: TAMSULOSIN HCL 0.4 MG CAP.SR.24H PO SCH (08:45)
[2017-08-29] MEDS: CARVEDILOL 12.5 MG TABLET PO SCH ×2 (08:45→17:09)
[2017-08-29] MEDS: CHOLECALCIFEROL 1,000 UNIT TABLET PO SCH (08:45)
[2017-08-29] MEDS: THIAMINE HCL 100 MG TABLET PO SCH (08:45)
[2017-08-29] MEDS: LISINOPRIL 20 MG TABLET PO SCH ×2 (08:45→17:09)
[2017-08-29] MEDS: VALPROIC ACID 250 MG/5 ML LIQUID UDC PO SCH ×2 (08:46→17:09)
[2017-08-29] MEDS: FLUTICASONE/VILANTEROL 1 EACH BLST.W.DEV INH SCH (08:46)
[2017-08-29] MEDS: MUPIROCIN 2% OINT 22 GM TUBE NS SCH (08:51)
--- NOTE | 2017-08-29 09:03 | NUR ---
I agree Addendum: 08/29/17 at 0903 by GLADIS ARTHUR OT Amended: Links added.
--- NOTE | 2017-08-29 09:40 | NUR ---
PT SEEN ON ROUNDING. PT bp elevated. pt given blood pressure meds to decrease bp. other vitals stable. pt continues to have orbital bruises but improving. pt swallow pills whole. pt instructed about fall prevention. pt continues to state that she does not like the treatment she gets here in the hospital. no sob noted. pt given inhaler. will continue to monitor.
--- NOTE | 2017-08-29 16:08 | NUR ---
Lumber Straightened: Biopsychosocial Assessment Bio: SW met with patient at bedside to assess for needs and provide support. Patient is a 66-year-old female admitted to ARU due to functional decline, gait dysfunction and ataxia. Patient had fallen at her assisted living facility. Per patient's chart, she has had several falls recently. Mental Status: Patient appeared alert and oriented x4 during interview. She presented in an anxious mood with congruent affect. Patient has been in the hospital since August 19, 2017. Patient was pleasant, calm, and cooperative during interview. Patient appears anxious about her discharge plans, and stated she does not want to return to her assisted living facility. Patient appears to be coping well with PT and OT. Social: Patient has been twice. She her first . Her second 10 years ago. She has four children. One of her children due to cancer. She also has several grandchildren whom she is in contact with. Patient appears to receive a lot of support from her family. However, patient reported having some conflict with her son due to disagreements over care plans. Patient appears to be experiencing a status and role change within her family. She does not appear to be coping well with becoming more dependent on her son. Goals: Patient reports that her goal is to "sew again." Interventions: SW engaged in active listening. SW provided emotional support and counseling. VIK spoke with egg caser Ben to express patient's feelings that she does not want to return to her assisted living. SW will continue to provide linkage to case management and provide community referrals if needed. SW will encourage patient to comply with ARU goals.
--- NOTE | 2017-08-29 18:36 | NUR ---
pt has been stable thoughoout the day. pt continues to be anxious and beligerent about plan of care. pt states that she does not want to be here. pt instructed the importance of adhering to therapy. pt refuses to stay. major case detective on the case. pt bp has been stable throughout the day. pt assisted as needed. pt bruises on face improving. will endorse to overnight cashier nurse.
--- NOTE | 2017-08-29 19:01 | NUR ---
pt left the unit at 1720. pt family signed out on pass.
--- NOTE | 2017-08-29 20:30 | NUR ---
pt. came back from out on pass with son in law who wheeled her through wheelchair. assisted pt back to bed. vital signs taken and recorded. breathing even and nonlabored. safety measures provided. call light in reach. will monitor the patient.
[2017-08-29 21:25] VITALS: BP 99/68
[2017-08-29] MEDS: ATORVASTATIN 20 MG TABLET PO SCH (21:36)
[2017-08-29] MEDS: ALLOPURINOL 100 MG TABLET PO SCH (21:36)
[2017-08-30] MEDS: ACETAMINOPHEN 325 MG TABLET PO PRN ×3 (02:03→20:43)
[2017-08-30] MEDS: PANTOPRAZOLE SODIUM 40 MG TABLET.DR PO SCH (07:06)
[2017-08-30 08:00] VITALS: BP 141/66
[2017-08-30] MEDS: FLUTICASONE/VILANTEROL 1 EACH BLST.W.DEV INH SCH (08:48)
[2017-08-30] MEDS: FOLIC ACID 1 MG TABLET PO SCH (08:48)
[2017-08-30] MEDS: ASPIRIN EC 81 MG TABLET.DR PO SCH (08:48)
[2017-08-30] MEDS: CHOLECALCIFEROL 1,000 UNIT TABLET PO SCH (08:48)
[2017-08-30] MEDS: TAMSULOSIN HCL 0.4 MG CAP.SR.24H PO SCH (08:49)
[2017-08-30] MEDS: LEVETIRACETAM 500 MG TABLET PO SCH (08:49)
[2017-08-30] MEDS: THIAMINE HCL 100 MG TABLET PO SCH (08:49)
[2017-08-30] MEDS: VALPROIC ACID 250 MG/5 ML LIQUID UDC PO SCH ×2 (08:59→17:56)
[2017-08-30] MEDS: CARVEDILOL 12.5 MG TABLET PO SCH (09:02)
[2017-08-30] MEDS: SPIRONOLACTONE 25 MG TABLET PO SCH ×2 (09:02→17:57)
[2017-08-30] MEDS: LISINOPRIL 20 MG TABLET PO SCH (09:02)
--- NOTE | 2017-08-30 14:43 | NUR ---
SBAR report received near bedside, board updated. Pt assessed, awake, alert, and oriented 4. No SOB, but sinus pain 6/10 reported. Pt compliant with all routine morning medications. Pt able to make needs known and continues to independently transfer self from bed to wheelchair, and request to go outside, even without supervision, but is reminded to use call light for all needs and that all Pt's must be accompanied outside with staff. Call light and personal items within reach. Bed alarm on. All comfort and safety measures addressed. Will continue to monitor.
--- NOTE | 2017-08-30 15:31 | NUR ---
Interdisciplinary Team Conference
--- NOTE | 2017-08-30 16:42 | NUR ---
Social Work Note: Attended IDT and patient's discharge plan was discussed. Family are unwilling and unable to care for pt. She is reportedly wanting to go home or live alone. She has dementia per team discussion and MD input. She does not have the capacity to make decisions or care for herself. Since family cannot care for her and she requires jail she will need to be transferred to a jail facility. She needs to be encouraged to do this. Family asked Mariana Hagan RNcollege or university business manager about conservatorship. They will be advised they need to do probate conservatorship which can be done outside of the hospital through a private assistant county attorney.
--- NOTE | 2017-08-30 17:45 | NUR ---
Pt seen by , psych evaluation completed, received new order for transfer to Mental Health Unit from Dr. Genao. Order placed. Pt continuing to be agitated and irritated with staff and ambulating at will. Talha, from the crisis team has been notified.
--- NOTE | 2017-08-30 18:19 | NUR ---
All safety measures met. Pt has been escorted back to room, Talha from crisis team is meeting with Pt at this time. Daughter Liza called requesting updated, and agreed to be called back following Talha's interaction with the Pt. Pt's son Bora has mk notified, pillowcase cutter has been made aware of Pt's growing aggression towards staff and plan of care.
[2017-08-30] MEDS ORDERED: LORAZEPAM 2 MG/1 ML VIAL IM ONE (19:45)
--- NOTE | 2017-08-30 20:40 | NUR ---
SBAR report given to Novem RN of [facility]. Pt administered Tylenol per PRN pain orders. Plan to transfer to [facility] reviewed with Pt, pt became upsat realizing grandchildren would be unable to visit due to changing hospitals and visiting hours. Pt agreed to transfer regardless. All comfort and safety measures met at this time. Pt personal items collected and accounted for. Will continue to monitor.
[2017-08-30 20:50] VITALS: BP 124/50
--- NOTE | 2017-08-30 21:17 | NUR ---
All Pt discharge paperwork completed, signed by Pt, original copy provided to Pt along with educational material. Discharge paperwork faxed to [facility] per request along with [id number] Hold documents. Additional copies of all paperwork placed in chart. notified. Last v/s taken to be 124/50, 94% RA, 18 RR, 69, and 98.6 temp. Pt agreed to assist with transfer peacefully. Pt taken by ange out of hospital with recruiting team lead via ambulance. Will remove Pt from computer system shortly.
== END 2017-08-30 20:30 | DRG 56 ==
PROVIDERS: ADMIT Physical Medicine & Rehabilitation Pain Medicine; ATTEND Physical Medicine & Rehabilitation Pain Medicine
DX: I69.398 Other sequelae of cerebral infarction (principal); G93.40 Encephalopathy, unspecified; J44.9 Chronic obstructive pulmonary disease, unspecified; R65.10 Systemic inflammatory response syndrome (SIRS) of non-infectious origin without acute organ dysfunction; D64.9 Anemia, unspecified; G40.909 Epilepsy, unspecified, not intractable, without status epilepticus; S06.5X9D Traumatic subdural hemorrhage with loss of consciousness of unspecified duration, subsequent encounter; G47.33 Obstructive sleep apnea (adult) (pediatric); R29.6 Repeated falls; W18.30XD Fall on same level, unspecified, subsequent encounter; Z95.1 Presence of aortocoronary bypass graft; Z91.81 History of falling; R27.0 Ataxia, unspecified; R45.1 Restlessness and agitation; R26.9 Unspecified abnormalities of gait and mobility; Z91.19 Patient's noncompliance with other medical treatment and regimen; F41.9 Anxiety disorder, unspecified; G47.00 Insomnia, unspecified; I25.10 Atherosclerotic heart disease of native coronary artery without angina pectoris; I10 Essential (primary) hypertension; R45.87 Impulsiveness; Z88.0 Allergy status to penicillin; Z91.048 Other nonmedicinal substance allergy status
CPT/HCPCS: 36415; 70030-TC; 85025; 92507; 92523; 97110; 97112; 97116; 97165; 97530; 97535; A4663